=== PATIENT | male | born 1985 | race Two or more races ===

== ENCOUNTER 2021-02-20 17:45 | Emergency (ER) | payer MEDICAID, OTHER ==
[~2021-02-20] VITALS: Ht 182.9 cm; Wt 81.6 kg
[2021-02-20 17:45] VITALS: BP 108/68
== END 2021-02-21 01:36 | disposition left against medical advice (07) ==
LOC: ER 17:45
DX: M79.644 Pain in right finger(s) (principal); Z53.21 Procedure and treatment not carried out due to patient leaving prior to being seen by health care provider; X58.XXXA Exposure to other specified factors, initial encounter; Y93.67 Activity, basketball; Y92.89 Other specified places as the place of occurrence of the external cause; Y99.8 Other external cause status
CPT/HCPCS: 73130

== ENCOUNTER 2021-02-21 10:15 | Emergency (ER) | payer MEDICAID ==
[~2021-02-21] VITALS: Ht 182.9 cm; Wt 86.2 kg
[2021-02-21 10:39] VITALS: BP 114/58
== END 2021-02-21 11:12 | disposition home or self-care (01) ==
LOC: ER 10:15
DX: S62.610D Displaced fracture of proximal phalanx of right index finger, subsequent encounter for fracture with routine healing (principal); X58.XXXD Exposure to other specified factors, subsequent encounter